=== PATIENT | female | born 1965 | race Caucasian/White ===

== ENCOUNTER 2019-09-26 10:20 | Emergency (ER) | payer OTHER ==
[~2019-09-26] VITALS: Ht 147.3 cm; Wt 59.0 kg
[2019-09-26] MEDS ORDERED: DICY20TA PO (15:19)
[2019-09-26] MEDS ORDERED: PROTONIX40 MG PO (15:19)
== END 2019-09-26 16:57 | disposition home or self-care (01) ==
LOC: ER 10:20
DX: K29.70 Gastritis, unspecified, without bleeding (principal)

== ENCOUNTER 2021-06-23 08:55 | Outpatient (CLI) | payer OTHER ==
[~2021-06-23 08:55] MED LIST: DICY20TA PO; PROTONIX40 MG PO
== END 2021-06-23 10:10 | disposition home or self-care (01) ==
LOC: SONOGRAMA 08:55
PROVIDERS: ATTEND Pathology Anatomic Pathology & Clinical Pathology
DX: R22.1 Localized swelling, mass and lump, neck (principal)

== ENCOUNTER 2021-08-18 08:49 | Outpatient (CLI) | payer OTHER | END 2021-08-18 08:59 | disposition home or self-care (01) | LOC: RX STUDY 08:49 | PROVIDERS: ATTEND Otolaryngology | DX: K22.89 Other specified disease of esophagus (principal); R13.19 Other dysphagia ==

== ENCOUNTER 2021-10-26 13:53 | Outpatient (CLI) | payer OTHER | END 2021-10-26 14:08 | disposition home or self-care (01) | LOC: RAD 13:53 | PROVIDERS: ATTEND Orthopaedic Surgery | DX: M25.561 Pain in right knee (principal) ==

== ENCOUNTER 2021-10-31 07:09 | Outpatient (CLI) | payer OTHER | END 2021-10-31 07:29 | disposition home or self-care (01) | LOC: MRI 07:09 | PROVIDERS: ATTEND Orthopaedic Surgery | DX: M25.561 Pain in right knee (principal); M23.91 Unspecified internal derangement of right knee | CPT/HCPCS: 73718 ==